=== PATIENT | female | born 1950 | race Caucasian/White ===

== ENCOUNTER → 2023-09-02 15:01 | Outpatient (CLI) | payer OTHER, SELFPAY ==
--- NOTE | 2023-09-02 | DI.RAD.S_ITS ---
PROCEDURE: XR FOOT RT MIN 3V INDICATIONS: hammer toe(s) right foot, bunionette of right foot TECHNIQUE: 3 views of the foot were acquired. COMPARISON: None. FINDINGS: Bones: No fractures or dislocations. Moderate degenerative changes of the 1st MTP. Mild interphalangeal joint degeneration. Mild hallux valgus angulation with medial bunion formation. Mild plantar calcaneal spur. No suspicious bony lesions. Soft tissues: No tibiotalar joint effusion. Achilles tendon appears normal. IMPRESSION: No acute osseous abnormalities. Moderate degenerative changes of the 1st MTP and mild interphalangeal joint degeneration. Mild hallux valgus angulation of the 1st MTP with medial bunion formation. Dictated by: Shaggy Peralta M.D. on 09/02/2023 at 16:38 Approved by: Shaggy Peralta M.D. on 09/02/2023 at 16:39
== END ==
PROVIDERS: PCP Internal Medicine; Referring Provider Podiatrist Foot & Ankle Surgery; Visit Provider Podiatrist Foot & Ankle Surgery
DX: M20.41 Other hammer toe(s) (acquired), right foot (principal); M21.621 Bunionette of right foot; M20.11 Hallux valgus (acquired), right foot; M21.611 Bunion of right foot; M19.071 Primary osteoarthritis, right ankle and foot
CPT/HCPCS: 73630

== ENCOUNTER 2023-10-04 06:24 | Day surgery (SDC) | payer OTHER, SELFPAY ==
[2023-09-29 08:50] VITALS: BMI 22.2
--- NOTE | 2023-10-01 17:11 | P.HP_ITS ---
History of Present Illness History of Present Illness Chief complaint: Right Hammertoe Repair/Osteotomy Toe Narrative: 73 year old female reports for painful spot on side of fifth right toe. Pain is described at +10/10 when trying to put on shoes. For past 8 years, patient noticed the misshaped area on toe. In the past 2-3 months, pain has grown worse. Quality is stinging and burning (sometimes) random bursts of pain. Context is reported as putting shoes on, walking with shoes on, putting socks on and rubbi ng on it. Patient wants to return to tennis and pickleball, and therefore would like to surgery for permanent fix. The right fifth toenail is thickened like a cat claw. Patient denies n/v/f/c/sob/cp. [facility] Medical History (Updated 09/29/23 @ 09:30 by Romelia Caba RN) History of COVID-19 (08/2022) Skin cancer Arthritis Surgical History (Updated 09/29/23 @ 09:24 by Romelia Caba RN) Hx of tonsillectomy Hx of bilateral cataract extraction (2022) Hx of eye surgery (2022) Social History household members: spouse Smoking Status: Never smoker alcohol intake: current Meds Home Medications and Allergies Home Medications Medication Instructions Recorded Confirmed Type No Known Home Medications 09/29/23 09/29/23 History Allergies Allergy/AdvReac Type Severity Reaction Status Date / Time Penicillins Allergy Told to Verified 09/29/23 09:17 patient as a child oxycodone [From Percodan] AdvReac Gastrointestinal Verified 09/29/23 09:17 Upset Review of Systems Review of Systems Narrative: Negative except as mentioned in HPI. Exam Skin Other: Severe tenderness on palpation toe calluses right medial toe 5 and lateral toe 4. Neuro Other: NV intact to b/l lower extremities. Extrem Other: Flexible right hammertoes 2-5 with adductovarus rotation toes 4 and 5. Bony prominence at right lateral toe 5 and medial toe 5. Mild right hallux abducto valgus deformity with enlarged medial eminence. Mild right tailor's bunion deformity with enlarged lateral eminence and contracture at metatarsophaleangeal joint. Assessment & Plan Assessment & Plan narrative: 1. Right foot hammertoes 4 and 5. 2. Right foot fifth metatarsophalangeal joint contracture. Surgical plan: right foot hammertoes 4 and 5 repair with derotational arthroplasty and fifth metatarsophalangeal joint capsulotomy and balancing. Risks and benefits of the procedure discussed with all questions answered to patient's satisfaction. Reviewed potential complications that may include but not limited to the following: DVT, failure to resolve all symptoms, infection, nerve injury, bleeding, recurrence, or wound. Reviewed surgical technique and general aftercare protocols. All questions answered to patient's satisfaction with no guarantees made. Patient verbalized understanding and agreed with surgical plan. RTC for post-op.
[2023-10-04] VITALS (7 sets, daily range): BP systolic 126–171; BP diastolic 69–82; PULSE 61–84; RESP 9–17; TEMP 36.2–37; O2SAT 90–99; BMI 23.1
--- NOTE | 2023-10-04 | DI.RAD.S_ITS ---
PROCEDURE: XR FOOT RT 2V INDICATIONS: SURGERY TECHNIQUE: 1 views of the foot were acquired. COMPARISON: [facility], , XR FOOT RT MIN 3V, 09/02/2023, 15:10. FINDINGS: Single fluoroscopic image of the foot was acquired. No surgical instrumentation is identified. No visualized fracture. Degenerative 1st MTP changes are present. IMPRESSION: Intraoperative image as above. Dictated by: Cindi Putnam M.D. on 10/04/2023 at 15:39 Approved by: Cindi Putnam M.D. on 10/04/2023 at 15:39
[2023-10-04] MEDS: LACTATED RINGERS 1,000 ML 100 ML IV (07:13)
[2023-10-04] MEDS: CLINDAMYCIN 900 MG/50 ML PIGGYBACK 50 MG IV (08:03)
--- NOTE | 2023-10-04 08:21 | SUR.OPER ---
Supine on padded OR bed, head on pillow, arms secured on padded arm boards at <90 degrees abduction, legs uncrossed, safety belt at thigh, tape over blanket over lower left leg.
[2023-10-04] MEDS: LIDOCAINE 1% 20 ML INJ (08:46)
[2023-10-04] MEDS: OXYCODONE IR 5 MG TABLET PO (10:15)
[2023-10-04] MEDS: ACETAMINOPHEN 325 MG TABLET 975 MG PO (10:15)
--- NOTE | 2023-10-04 10:26 | P.OP_ITS ---
Operative Date/Time/Diagnoses Date of procedure: 10/04/23 Pre-op diagnosis: 1. Right foot hammer digit syndrome toes 4 and 5. 2. Right foot fifth metatarsal joint contracture. 3. Right foot calluses toes 4 and 5. 4. Right toes pain. Post-op diagnosis: same Procedure & Clinicians Procedure: 1. Right foot derotational arthroplasty toes 4 and 5. 2. Right foot fifth metatarsal joint capsulotomy and balancing. 3. Right foot parring of calluses x 2. Same procedure as scheduled: No (Added 44110 to list of procedures. ) Indications: Painful lesions to toes 4 and 5 secondary to rigid and arthritic deformities of toes 4 and 5 as well as contracture of fifth metatarsophalangeal joint. Surgeon: Manish Patel Click Yes if Unassisted: Yes Anesthesia Type: Sedation and Local Operative Notes Findings: Nucleated calluses and bony impingement to hammertoes. Closure Type: primary Estimated Blood Loss (mL): 15 Tourniquet time (min): 50 Procedure in detail: Patient was identified, transported into the operating room on a gurney, and transferred onto the operating table. Patient was in supine position. Deep sedation was administered in the operating room. An ankle tourniquet was applied over cast padding on the right lower limb. The surgical limb was prepped and draped in the usual sterile fashion, followed by an official timeout with the entire operating room in agreement. Local anesthesia using 10 cc 1% lidocaine plain was administered for digital block. Attention was first directed to the lateral right fourth toe, where a nucleated callus on was pared down to dermis using #15 scalpel. Attention was then directed to the dorsal fourth toe, where an elliptical incision was made using # 15 scalpel from proximal lateral to distal medial over the proximal interphalangeal joint. Dissection was carried out from skin down to the joint, where the capsule and extensor tendon was reflected. The prominent head of the proximal phalanx was removed using sagittal saw. Alleviation of pressure point was noted. The procedure site was covered with saline moistened gauze. Attention was then directed to the right fifth toe, where a nucleated callus on the distal medial toe was pared down to dermis using #15 scalpel. An elliptical incision was made using # 15 scalpel from proximal lateral to distal medial over the proximal interphalangeal joint at the dorsal aspect. Dissection was carried out from skin down to the joint, where the capsule and extensor tendon was reflected. The prominent head of the proximal phalanx was removed using sagittal saw. A rasp was used to smooth down the sharpy edges until alleviation of pressure points were noted. Attention was then directed to the right fifth metatarsaophalagenal joint, which was noted to be contracted and laterally deviated. A # 15 scalpel was used to dissect from skin down to the joint. The capsule was released using sharp disse ction and McGlamary elevator with care to protect neurovascular structures. After adequate release and positioning was achieved, the lateral joint capsule was tensioned with 0 vicryl with augmentation of extensor tendon using 2-0 vicryl. Attention was redirected to all open procedure sites, which were flushed copiously using normal saline. The extensor tendons of the digits were reapproximated using 3-0 vicryl, and the skin was closed using 4-0 vicryl and 3- 0 nylons. During closure, the tourniquet was released with perfusion noted to all surgical sites. The surgical foot was washed and dried, followed by sterile dressing using iodine soaked Adaptic, gauze, abdomninal pad, Kerlix, elastic badnage, and surgical shoe. Patient tolerated procedure without complication. Patient was transferred to the PACU with all vital signs stable. Post-operative Condition: stable Disposition: same day surgery Plan for aftercare: Limited partial WB to heel in surgical shoe. Keep dressing clean, dry, and intact. Elevate surgical limb above heart. Ice behind knee 15 min/hr when awake. Return visit on Wednesday10/11/23.
== END 2023-10-04 10:42 | disposition home or self-care (01) ==
PROVIDERS: PCP Internal Medicine; Referring Provider Podiatrist Foot & Ankle Surgery; Visit Provider Podiatrist Foot & Ankle Surgery
PROC: (CPT 28285; principal; 2023-10-04 07:45)
DX: M20.41 Other hammer toe(s) (acquired), right foot (principal); M24.574 Contracture, right foot; L84 Corns and callosities
CPT/HCPCS: 28270; 28285 ×2; 11056; 73620; 76000; J1100; J1885; J2250; J2405; J2704; J3010